=== PATIENT | female | born 1990 | race Caucasian/White ===

== ENCOUNTER 2017-02-18 06:20 | Emergency (ER) | payer BC, OTHER ==
[~2017-02-18] VITALS: Ht 157.5 cm; Wt 53.7 kg
[~2017-02-18 06:20] MED LIST: ACETAMINOPHEN500 MG PO; CIPRO500 MG PO; COLACE100 MG PO; DILAUDID2 MG PO; ENDOCET 5-3251 EACH PO; HEPARIN SO5000 UNITS SC; KEFLEX500 MG PO; LOVENOX40 MG/0.4 SC; LYRICA75 MG PO; MACROBID100 MG PO; MOTRIN800 MG PO; NORCO 5/3251 TABLET PO; PERCOCET 5/31 TABLET PO; PRENATAL TABLE1 EAC3 PO; PROCARDIA20 MG PO; RANITIDINE HCL150 M1 PO; TYLENOL EXTRA500 MG PO; ULTRAM50 MG PO; VICODIN 5-3001 EACH PO; ZOFRAN ODT4 MG PO; ZOFRAN ODT8 MG PO; ZOFRAN4 MG PO; ZOLOFT50 MG PO
[2017-02-18 07:10] LABS: HEMATOCRIT 41.4 % (36.0-46.0); MCH 28.7 PG (29.0-34.0); MCHC 33.6 G/DL (30.0-36.0); MCV 85.4 FL (83-99); MEAN PLAT.VOLUME 10.3 uM^3 (9.5-12.4); PLATELET COUNT 227 K/uL (156-360); RBC DIS.WIDTH-CV 12.9 % (11.8-14.6); RED BLOOD COUNT 4.85 M/uL (3.80-5.20); WHITE BLOOD COUNT 5.7 K/uL (4.1-10.2)
[2017-02-18 07:42] LABS: ANION GAP 7 MEQ/L (2-14); CHLORIDE 110 MEQ/L (99-109); POTASSIUM 3.6 MEQ/L (3.7-5.4); SAMPLE HEMOLYSIS CHECK 0; SAMPLE ICTERIC CHECK 0; SAMPLE LIPEMIA CHECK 0; SODIUM 140 MEQ/L (136-147); TOTAL BILIRUBIN 0.5 MG/DL (0.0-1.0)
[2017-02-18 07:48] LABS: ALKALINE PHOSPHATASE 39 IU/L (3-129); GFR ESTIMATE (CALCULATED) > 59 mL/min/; GLUCOSE 94 mg/dL (70-99); UREA NITROGEN (BUN) 9 mg/dL (9-23)
[2017-02-18 07:52] LABS: QUANTITATIVE HCG < 4.0 MIU/ML
[2017-02-18 08:17] VITALS: BP 96/52
== END 2017-02-18 09:20 | disposition left against medical advice (07) ==
LOC: EME 06:20
DX: R10.12 Left upper quadrant pain (principal); W10.9XXA Fall (on) (from) unspecified stairs and steps, initial encounter; Z88.6 Allergy status to analgesic agent; Z88.2 Allergy status to sulfonamides; Z87.891 Personal history of nicotine dependence
CPT/HCPCS: 80053; 81003; 84702; 85027; 99281; 99284

== ENCOUNTER 2017-03-25 18:46 | Emergency (ER) | payer BC, OTHER ==
[~2017-03-25] VITALS: Ht 157.5 cm; Wt 51.3 kg
[2017-03-25 21:40] VITALS: BP 103/85
[2017-03-25] MEDS ORDERED: VENTOLIN HFA18 GM IH (21:51)
[2017-03-25] MEDS ORDERED: TRAMADOL HCL50 MG PO (21:51)
== END 2017-03-25 22:02 | disposition home or self-care (01) ==
LOC: EME 18:46
DX: J45.901 Unspecified asthma with (acute) exacerbation (principal); B34.9 Viral infection, unspecified; F17.200 Nicotine dependence, unspecified, uncomplicated; M79.7 Fibromyalgia; Z88.6 Allergy status to analgesic agent; Z88.2 Allergy status to sulfonamides
CPT/HCPCS: 71020; 94640; 99281; 99285; J1100

== ENCOUNTER 2017-04-22 04:23 | Emergency (ER) | payer BC, OTHER ==
[~2017-04-22] VITALS: Ht 157.5 cm; Wt 53.2 kg
[~2017-04-22 04:23] MED LIST changes: +TRAMADOL HCL50 MG PO; +VENTOLIN HFA18 GM IH
[2017-04-22] MEDS ORDERED: ZANAFLEX2 MG PO (05:50)
[2017-04-22 06:37] VITALS: BP 105/62
== END 2017-04-22 06:38 | disposition home or self-care (01) ==
LOC: EME 04:23
DX: M79.651 Pain in right thigh (principal); G89.29 Other chronic pain; M79.7 Fibromyalgia; M25.551 Pain in right hip; F17.200 Nicotine dependence, unspecified, uncomplicated
CPT/HCPCS: 99281; 99283

== ENCOUNTER 2017-05-27 21:07 | Emergency (ER) | payer BC, OTHER ==
[~2017-05-27] VITALS: Ht 160 cm; Wt 52.1 kg
[~2017-05-27 21:07] MED LIST changes: +BENTYL20 MG PO; +ZANAFLEX2 MG PO
[2017-05-27 21:34] LABS: HEMATOCRIT 46.3 % (36.0-46.0); MCH 28.9 PG (29.0-34.0); MCHC 33.7 G/DL (30.0-36.0); MCV 85.7 FL (83-99); MEAN PLAT.VOLUME 9.4 uM^3 (9.5-12.4); PLATELET COUNT 298 K/uL (156-360); RBC DIS.WIDTH-SD 44.4 % (39-53); WHITE BLOOD COUNT 10.1 K/uL (4.1-10.2)
[2017-05-27 21:43] LABS: CHLORIDE 106 mEq/L (99-109); POTASSIUM 4.1 mEq/L (3.7-5.4); SODIUM 142 mEq/L (136-147)
[2017-05-27 21:45] LABS: GLUCOSE 96 mg/dL (70-99)
[2017-05-27 21:47] LABS: ANION GAP 14 MEQ/L (2-14); TOTAL BILIRUBIN 0.5 mg/dL (0.0-1.0)
[2017-05-27 21:49] LABS: ALKALINE PHOSPHATASE 54 IU/L (3-129); GFR ESTIMATE (CALCULATED) > 59 mL/min/
[2017-05-27 21:50] LABS: UREA NITROGEN (BUN) 12 mg/dL (9-23)
[2017-05-27 21:57] LABS: QUANTITATIVE HCG < 4.0 MIU/ML
[2017-05-27 22:46] LABS: LIPASE 37 U/L (1.0-51.0)
[2017-05-27 23:04] LABS: ADD MIUA? YES; BILIRUBIN NEGATIVE; BLOOD NEGATIVE; COLOR YELLOW ((YELLOW)); GLUCOSE (STRIP) NEGATIVE; KETONES NEGATIVE; LEUKOCYTES TRACE; NITRITE NEGATIVE; PROTEIN (STRIP) NEGATIVE; SPECIFIC GRAVITY 1.023 (1.000-1.030); UROBILINOGEN 0.2 MG/DL (0.2-1.0)
[2017-05-27 23:23] LABS: BACTERIA RARE /HPF; EPITHELIAL CELLS 1+ /HPF; MUCUS 1+ /LPF; RED BLOOD CELLS 0-5 /HPF (0-5); UCUL ADDED? NO; WHITE BLOOD CELLS 0-5 /HPF (0-5)
[2017-05-27 23:42] LABS: INFLUENZA A VIRAL ANTIGEN NEGATIVE; INFLUENZA B VIRAL ANTIGEN NEGATIVE
[2017-05-28 00:07] VITALS: BP 116/76
== END 2017-05-28 00:08 | disposition home or self-care (01) ==
LOC: EME 21:07 → RME 21:07
PROVIDERS: Physician Assistant
DX: R10.9 Unspecified abdominal pain (principal); R11.2 Nausea with vomiting, unspecified; R19.7 Diarrhea, unspecified; M79.7 Fibromyalgia; F17.200 Nicotine dependence, unspecified, uncomplicated
CPT/HCPCS: 80053; 81003; 83690; 84702; 85027; 87502; 99281; 99284; J0500

== ENCOUNTER 2017-12-20 18:05 | Outpatient (CLI) | payer OTHER ==
[2017-12-20 18:22] VITALS: BP 117/76
[2017-12-20 18:29] VITALS: BP 117/76
[2017-12-20 19:25] LABS: BASOPHIL (%) 0.3 % (0-1); EOSINOPHIL (%) 0.6 % (0-5); EOSINOPHIL COUNT 0.1 K/uL (0-0.3); HEMATOCRIT 34.8 % (36.0-46.0); HEMOGLOBIN 11.9 G/DL (11.9-15.5); IMMATURE GRANULOCYTE (%) 0.8 % (0.0-0.7); LYMPHOCYTE (%) 20.3 % (15-42); LYMPHOCYTE COUNT 2.9 K/uL (1.0-2.8); MCH 29.6 PG (29.0-34.0); MCHC 34.2 G/DL (30.0-36.0); MCV 86.6 FL (83-99); MONOCYTE (%) 5.8 % (3-12); MONOCYTE COUNT 0.8 K/uL (0-0.8); NEUTROPHIL (%) 72.2 % (45-76); NEUTROPHIL COUNT 10.3 K/uL (1.8-6.4); PLATELET COUNT 208 K/uL (156-360); RBC DIS.WIDTH-CV 13.3 % (11.8-14.6); RBC DIS.WIDTH-SD 41.5 % (39-53); RED BLOOD COUNT 4.02 M/uL (3.80-5.20); WHITE BLOOD COUNT 14.3 K/uL (4.1-10.2)
[2017-12-20 20:10] VITALS: BP 107/69
[2017-12-20] MEDS ORDERED: LOVENOX40 MG/0.4 SC (21:10)
[2017-12-20] MEDS ORDERED: MAKENA250 MG/1 M IM (21:12)
[2017-12-20] MEDS ORDERED: PROMETHAZINE HC25 M1 PO (21:13)
[2017-12-20 22:45] VITALS: BP 91/54
== END 2017-12-20 23:00 | disposition home or self-care (01) ==
LOC: LDRP-OP 18:05 → 2WEST 18:07
PROVIDERS: Advanced Practice Midwife
DX: Z03.79 Encounter for other suspected maternal and fetal conditions ruled out (principal); O99.89 Other specified diseases and conditions complicating pregnancy, childbirth and the puerperium; S39.91XA Unspecified injury of abdomen, initial encounter; M54.5 Low back pain; W50.1XXA Accidental kick by another person, initial encounter; Z3A.28 28 weeks gestation of pregnancy; O99.352 Diseases of the nervous system complicating pregnancy, second trimester; G89.29 Other chronic pain; O99.342 Other mental disorders complicating pregnancy, second trimester; F32.9 Major depressive disorder, single episode, unspecified; Z87.440 Personal history of urinary (tract) infections
CPT/HCPCS: 59025; 76805; 85025; 85460; G0378

== ENCOUNTER 2018-01-06 23:07 | Outpatient (CLI) | payer BC, OTHER ==
[~2018-01-06] VITALS: Ht 160 cm; Wt 64.4 kg
[~2018-01-06 23:07] MED LIST changes: +MAKENA250 MG/1 M IM; +PROMETHAZINE HC25 M1 PO
[2018-01-06 23:23] VITALS: BP 110/73
[2018-01-07 00:35] LABS: APPEARANCE CLEAR ((CLEAR)); BILIRUBIN NEGATIVE; BLOOD NEGATIVE; COLOR YELLOW ((YELLOW)); GLUCOSE (STRIP) NEGATIVE; KETONES NEGATIVE; LEUKOCYTES TRACE; NITRITE NEGATIVE; PROTEIN (STRIP) NEGATIVE; SPECIFIC GRAVITY 1.011 (1.000-1.030); UROBILINOGEN 0.2 MG/DL (0.2-1.0)
[2018-01-07 00:41] LABS: BACTERIA RARE /HPF; EPITHELIAL CELLS 1+ /HPF; MUCUS TRACE /LPF; RED BLOOD CELLS 0-5 /HPF (0-5); UCUL ADDED? NO; WHITE BLOOD CELLS 0-5 /HPF (0-5)
[2018-01-07] MEDS ORDERED: PRENATAL TABLE1 EAC3 PO (01:01)
[2018-01-07] MEDS ORDERED: ACID CONTROLLER20 MG PO (01:02)
[2018-01-07 01:51] LABS: CANDIDA DNA PROBE NEGATIVE; GARDNERELLA DNA PROBE POSITIVE; TRICHOMONAS DNA PROBE NEGATIVE
== END 2018-01-07 01:35 | disposition home or self-care (01) ==
LOC: LDRP-OP 23:07 → 2WEST 23:08 → LDRP-OP 04-09 23:59
PROVIDERS: Advanced Practice Midwife
DX: O26.893 Other specified pregnancy related conditions, third trimester (principal); R10.9 Unspecified abdominal pain; O99.113 Other diseases of the blood and blood-forming organs and certain disorders involving the immune mechanism complicating pregnancy, third trimester; D68.59 Other primary thrombophilia; O34.219 Maternal care for unspecified type scar from previous cesarean delivery; Z3A.31 31 weeks gestation of pregnancy
CPT/HCPCS: 59025; 81003; 82731; 87480; 87510; 87660; G0378

== ENCOUNTER 2018-03-02 19:59 | Outpatient (CLI) | payer BC, OTHER ==
[~2018-03-02 19:59] MED LIST changes: +BENADRYL25 MG PO; +HEPARIN SO5000 UNIT4 SC; +PEPCID20 MG PO
[2018-03-02 20:25] VITALS: BP 116/78
[2018-03-02 20:41] LABS: BASOPHIL (%) 0.3 % (0-1); BASOPHIL COUNT 0.1 K/uL (0-0.1); EOSINOPHIL (%) 0.3 % (0-5); EOSINOPHIL COUNT 0.1 K/uL (0-0.3); HEMATOCRIT 37.1 % (36.0-46.0); HEMOGLOBIN 12.2 G/DL (11.9-15.5); IMMATURE GRANULOCYTE (%) 0.8 % (0.0-0.7); LYMPHOCYTE (%) 18.5 % (15-42); LYMPHOCYTE COUNT 3.1 K/uL (1.0-2.8); MCH 27.5 PG (29.0-34.0); MCHC 32.9 G/DL (30.0-36.0); MCV 83.7 FL (83-99); NEUTROPHIL (%) 74.1 % (45-76); NEUTROPHIL COUNT 12.3 K/uL (1.8-6.4); PLATELET COUNT 276 K/uL (156-360); RBC DIS.WIDTH-CV 14.6 % (11.8-14.6); RBC DIS.WIDTH-SD 44.3 % (39-53); RED BLOOD COUNT 4.43 M/uL (3.80-5.20); WHITE BLOOD COUNT 16.6 K/uL (4.1-10.2)
[2018-03-02 21:04] LABS: ALBUMIN 3.8 G/DL (3.2-4.8); ALKALINE PHOSPHATASE 160 IU/L (3-129); ALT (GPT) 29 IU/L (3-49); AST (GOT) 22 IU/L (2-34); CHLORIDE 105 MEQ/L (99-109); CREATININE 0.6 MG/DL (0.6-1.3); GFR ESTIMATE (CALCULATED) > 59 mL/min/; GLUCOSE 82 mg/dL (70-99); LACTATE DEHYDROGENASE 149 IU/L (20-246); POTASSIUM 3.8 MEQ/L (3.7-5.4); SODIUM 137 MEQ/L (136-147); TOTAL BILIRUBIN 0.4 MG/DL (0.0-1.0); TOTAL PROTEIN 6.7 G/DL (6.4-8.3); UREA NITROGEN (BUN) 8 mg/dL (9-23)
[2018-03-02 21:12] LABS: D-DIMER LATEX POSITIVE
[2018-03-02 21:38] LABS: AMPHETAMINE NEGATIVE (500 ng/mL); BARBITURATES NEGATIVE (200 ng/mL); BENZODIAZEPINES NEGATIVE (150 ng/mL); BUPRENORPHINE NEGATIVE (10 ng/mL); COCAINE NEGATIVE (150 ng/mL); METHADONE NEGATIVE (200 ng/mL); METHAMPHETAMINE NEGATIVE (500 ng/mL); OPIATES (MORPHINE) NEGATIVE (100 ng/mL); OXYCODONE NEGATIVE (100 ng/mL); PHENCYCLIDINE NEGATIVE (25 ng/mL); PROPOXYPHENE NEGATIVE (300 ng/mL); THC CANNABINOIDS PRESUMPTIVE POSITIVE (50 ng/mL); TRICYCLIC ANTIDEPRESSANTS NEGATIVE (300 ng/mL)
[2018-03-02 21:42] LABS: SCHISTOCYTES NONE SEEN
[2018-03-02 21:51] LABS: PTT 24.9 SEC (25-37)
[2018-03-02 22:33] LABS: FIBRINOGEN 538 mg/dL (150-450)
[2018-03-02 22:52] VITALS: BP 118/78
== END 2018-03-02 23:15 | disposition home or self-care (01) ==
LOC: LDRP-OP 19:59 → 2WEST 20:02 → LDRP-OP 03-26 02:03
PROVIDERS: Obstetrics & Gynecology Gynecology
DX: O47.1 False labor at or after 37 completed weeks of gestation (principal); O99.343 Other mental disorders complicating pregnancy, third trimester; F31.9 Bipolar disorder, unspecified; O99.353 Diseases of the nervous system complicating pregnancy, third trimester; G43.909 Migraine, unspecified, not intractable, without status migrainosus; M79.7 Fibromyalgia; O99.613 Diseases of the digestive system complicating pregnancy, third trimester; K58.9 Irritable bowel syndrome, unspecified; Z87.440 Personal history of urinary (tract) infections; O99.89 Other specified diseases and conditions complicating pregnancy, childbirth and the puerperium; G89.29 Other chronic pain; M41.9 Scoliosis, unspecified; O34.211 Maternal care for low transverse scar from previous cesarean delivery; Z87.891 Personal history of nicotine dependence; Z3A.38 38 weeks gestation of pregnancy
CPT/HCPCS: 59025; 80053; 83615; 84999; 85025; 85378; 85384; 85610; 85730; 86850; 86900; 86901; G0378; J1644; J3105; J7120

== ENCOUNTER 2018-03-06 07:36 | Inpatient (IN) | payer BC, OTHER ==
[~2018-03-06] VITALS: Ht 160 cm; Wt 67.6 kg
[2018-03-06 07:56] VITALS: BP 104/66
[2018-03-06 12:20] VITALS: BP 118/65
[2018-03-06] MEDS ORDERED: PERCOCET 5/31 TABLET PO (15:05)
[2018-03-06] MEDS ORDERED: LOVENOX40 MG/0.4 SC (15:05)
[2018-03-07 06:47] LABS: BASOPHIL (%) 0.2 % (0-1); EOSINOPHIL (%) 0.2 % (0-5); HEMATOCRIT 31.6 % (36.0-46.0); IMMATURE GRANULOCYTE (%) 0.7 % (0.0-0.7); LYMPHOCYTE COUNT 3.5 K/uL (1.0-2.8); MCH 27.6 PG (29.0-34.0); MCV 86.3 FL (83-99); MONOCYTE (%) 7.6 % (3-12); MONOCYTE COUNT 1.8 K/uL (0-0.8); NEUTROPHIL (%) 76.3 % (45-76); NEUTROPHIL COUNT 17.9 K/uL (1.8-6.4); PLATELET COUNT 232 K/uL (156-360); RBC DIS.WIDTH-CV 14.9 % (11.8-14.6); RBC DIS.WIDTH-SD 47.1 % (39-53); RED BLOOD COUNT 3.66 M/uL (3.80-5.20); WHITE BLOOD COUNT 23.5 K/uL (4.1-10.2)
[2018-03-07 06:49] LABS: HEMOGLOBIN 10.1 G/DL (11.9-15.5)
[2018-03-07 22:27] VITALS: BP 156/78
[2018-03-07 22:33] VITALS: BP 118/68
[2018-03-08 00:25] VITALS: BP 115/71
[2018-03-08 00:56] VITALS: BP 109/63
[2018-03-08 03:00] VITALS: BP 104/56
[2018-03-09] MEDS ORDERED: PEPCID20 MG PO (11:18)
[2018-03-09] MEDS ORDERED: LOVENOX40 MG/0.4 SC (11:21)
[2018-03-09] MEDS ORDERED: PERCOCET 5/31 TABLET PO (11:21)
[2018-03-09] MEDS ORDERED: GABAPENTIN300 MG PO (11:21)
[2018-03-09] MEDS ORDERED: DOCUSATE SODIU100 MG PO (11:21)
[2018-03-09] MEDS ORDERED: VALACYCLOVIR500 MG PO (11:21)
== END 2018-03-09 14:00 | disposition home or self-care (01) | DRG 765 ==
LOC: 2WEST 07:36 → 2SOUTH 09:19 → 2WEST 03-09 14:00
PROVIDERS: Obstetrics & Gynecology
DX: O34.211 Maternal care for low transverse scar from previous cesarean delivery (principal); O99.354 Diseases of the nervous system complicating childbirth; O99.12 Other diseases of the blood and blood-forming organs and certain disorders involving the immune mechanism complicating childbirth; D68.59 Other primary thrombophilia; O98.52 Other viral diseases complicating childbirth; F33.9 Major depressive disorder, recurrent, unspecified; O99.344 Other mental disorders complicating childbirth; Z30.2 Encounter for sterilization; Z37.0 Single live birth; Z3A.39 39 weeks gestation of pregnancy; G43.909 Migraine, unspecified, not intractable, without status migrainosus; G89.29 Other chronic pain; M79.7 Fibromyalgia; M54.9 Dorsalgia, unspecified; B00.1 Herpesviral vesicular dermatitis; Z79.01 Long term (current) use of anticoagulants; Z88.6 Allergy status to analgesic agent; Z88.5 Allergy status to narcotic agent; Z88.2 Allergy status to sulfonamides
CPT/HCPCS: 36415; 85025; 86850; 86900; 86901; 88302; J0330; J0690; J1100; J1170; J1650; J1885; J2274; J2405; J3010; J7120; J7643; S0020